=== PATIENT | female | born 1970 | race Caucasian/White ===

== ENCOUNTER 2021-12-26 12:22 | Emergency (ER) | payer BC ==
[2021-12-26 12:48] VITALS: BP 123/84; PULSE 71; TEMP 97.6; BMI 22.4
== END 2021-12-26 15:21 | disposition home or self-care (01) ==
LOC: JERFT 12:22
DX: S06.0X0A Concussion without loss of consciousness, initial encounter (principal)
CPT/HCPCS: 70450-TC; 99283-25

== ENCOUNTER 2022-03-30 15:25 | Emergency (ER) | payer BC ==
[2022-03-30 15:51] VITALS: BP 116/84; PULSE 75; RESP 16; TEMP 98.1; BMI 20.6
[2022-03-30] MEDS ORDERED: CEFTRIAXONE 1,000 MG in DEXTROSE 5%-WATER - 50 ML IVPB ONE (16:13)
[2022-03-30] MEDS ORDERED: cefTRIAXone SODIUM 1 GM VIAL ONE (16:15)
[2022-03-30 17:49] LABS: EPITHELIAL CELLS FEW /hpf
== END 2022-03-30 17:11 | disposition home or self-care (01) ==
LOC: FER 15:25
PROC: 3E033GC Introduction of Other Therapeutic Substance into Peripheral Vein, Percutaneous Approach (ICD-10-PCS; principal; 2022-03-30)
DX: N30.00 Acute cystitis without hematuria (principal)
CPT/HCPCS: 81003; 81015; 84703; 87086; 99284-25

== ENCOUNTER 2024-08-03 13:07 | Emergency (ER) | payer BC ==
[2024-08-03 13:18] VITALS: BMI 21.9
[2024-08-03] MEDS: SODIUM CHLORIDE 0.9% 500 ML INFUS.BAG IV ONE (13:33)
[2024-08-03] MEDS: ONDANSETRON 4 MG/2 ML VIAL IVPUSH ONE (13:34)
[2024-08-03] MEDS ORDERED: ONDANSETRON 4 MG/2 ML VIAL ONE (13:36)
[2024-08-03] MEDS ORDERED: FAMOTIDINE 20 MG/50 ML IVPB 20 MG/50 ML MG IVPB ONE (13:36)
[2024-08-03] MEDS: FAMOTIDINE 20 MG/50 ML IVPB 20 MG/50 ML MG IVPB ONE (13:36)
[2024-08-03] MEDS ORDERED: ACETAMINOPHEN INJECTION 100 ML ONE (13:36)
[2024-08-03 13:41] LABS: HEMATOCRIT 45.8 % (32.4-45.2); HEMOGLOBIN 16.2 G/dL (10.7-15.3); MCH 35.1 pg (25.7-33.7); MCHC 35.4 g/dl (32.0-36.0); MEAN CELL VOLUME 99.3 fl (80-96); MEAN PLT VOLUME 7.2 fl (7.5-11.1); PLATELET COUNT 238.3 10^3/uL (134-434); RBC 4.61 10^6/uL (3.60-5.2); RDW 12.8 % (11.6-15.6); WHITE BLOOD COUNT 10.2 10^3/uL (4.0-10.8)
[2024-08-03 13:55] LABS: PLATELET ESTIMATE ADEQUATE
[2024-08-03 14:01] LABS: ALBUMIN 4.3 g/dl (3.4-5.0); BILIRUBIN,TOTAL 1.1 mg/dl (0.2-1); CALCIUM 9.2 mg/dl (8.5-10.1); CREATININE 0.8 mg/dl (0.6-1.3); MAGNESIUM 1.8 mg/dL (1.8-2.4); POTASSIUM 4.1 mmol/L (3.5-5.1); TOT PROT 6.9 g/dl (6.4-8.2)
[2024-08-03] MEDS: ACETAMINOPHEN 1000 MG/100 ML BAG IVPB ONE (14:05)
[2024-08-03] MEDS ORDERED: METOCLOPRAMIDE HCL INJECTION 10 MG/2 ML VIAL ONE (14:34)
[2024-08-03] MEDS: METOCLOPRAMIDE HCL INJECTION 10 MG/2 ML VIAL IVPB ONE (14:38)
[2024-08-03 15:08] VITALS: BP 122/72; PULSE 86; RESP 16; TEMP 98.7
[2024-08-03] MEDS ORDERED: MAG HYDROX/AL HYDROX/SIMETH 30 ML UNIT-DOSE CUP ONE (15:10)
[2024-08-03] MEDS: MAG HYDROX/AL HYDROX/SIMETH 30 ML UNIT-DOSE CUP PO ONE (15:15)
[2024-08-03 16:23] LABS: HIV INTERPRETATION NEGATIVE (NEGATIVE)
== END 2024-08-03 15:37 | disposition home or self-care (01) ==
LOC: FER 13:07
PROC: 3E033GC Introduction of Other Therapeutic Substance into Peripheral Vein, Percutaneous Approach (ICD-10-PCS; principal; 2024-08-03)
PROC: 3E033NZ Introduction of Analgesics, Hypnotics, Sedatives into Peripheral Vein, Percutaneous Approach (ICD-10-PCS; 2024-08-03)
PROC: 3E033GC Introduction of Other Therapeutic Substance into Peripheral Vein, Percutaneous Approach (ICD-10-PCS; 2024-08-03)
PROC: 3E033GC Introduction of Other Therapeutic Substance into Peripheral Vein, Percutaneous Approach (ICD-10-PCS; 2024-08-03)
DX: K52.9 Noninfective gastroenteritis and colitis, unspecified (principal); R11.2 Nausea with vomiting, unspecified; R10.13 Epigastric pain; Z20.822 Contact with and (suspected) exposure to COVID-19
CPT/HCPCS: 0241U-QW; 36415; 80053; 83735; 85027; 86803; 87389; 99284-25; J0131